=== PATIENT | male | born 1965 | race African-American/Black ===

== ENCOUNTER 2017-01-05 23:29 | Emergency (ER) | payer SELFPAY ==
[~2017-01-05] VITALS: Ht 175.3 cm; Wt 74.8 kg
[2017-01-06] MEDS ORDERED: NKM (00:03)
--- NOTE | 2017-01-06 01:21 | Emergency Room Report ---
History of Present Illness General Chief Complaint: Lower Extremity Injury Source: Patient Present Illness HPI 51-year-old male history of psych, left knee surgery 9 months ago, presenting with left knee pain. Patient poor historian, stating that he has had left knee pain, fell and landed on a, has a brace on, unable to give timeframe. Denies head trauma or LOC. Also states that he has suicidal ideation, has not had plan, we'll not provide history as to if patient should be on any medications for depression, unknown inpatient psych admission Allergies: Coded Allergies: PENICILLINS (Verified Allergy, Unknown, 01/06/17) Patient History Past Medical History: see triage record Past Surgical History: none Pertinent Family History: none Reviewed Nursing Documentation: PMH: Agreed, PSxH: Agreed Nursing Documentation-PMH Past Medical History: No Stated History Review of Systems All Other Systems: negative except mentioned in HPI Physical Exam Vital Signs Date Time Temp Pulse Resp B/P (MAP) Pulse Ox O2 Delivery O2 Flow Rate FiO2 01/05/17 23:58 98.2 104 16 102/57 95 Room Air Sp02 EP Interpretation: reviewed, normal General Appearance: GCS 15, non-toxic, other - Middle aged male, appears disheveled, not in acute distress Head: normocephalic, atraumatic Eyes: bilateral eye normal inspection, bilateral eye PERRL, bilateral eye EOMI ENT: normal ENT inspection, normal pharynx, normal voice, moist mucus membranes Neck: normal inspection, full range of motion, supple Respiratory: normal inspection, lungs clear, normal breath sounds, no respiratory distress, no retraction, no wheezing, speaking full sentences, chest symmetrical Cardiovascular #1: normal inspection, regular rate, rhythm, no edema, normal capillary refill Cardiovascular #2: 2+ radial (R), 2+ radial (L) Gastrointestinal: normal inspection, non tender, soft, non-distended, no guarding Genitourinary: no CVA tenderness Musculoskeletal: non-tender, other - Left knee tender to palpation, no obvious effusion, no warmth no erythema, limited range of motion secondary to pain Neurologic: normal inspection, alert, oriented x3, responsive, motor strength/ tone normal, sensory intact, normal gait, speech normal Psychiatric: memory normal, other - +SI Skin: normal inspection, normal color, no rash, warm/dry, well hydrated, normal turgor Medical Decision Making Diagnostic Impression: Primary Impression: Chronic pain of left knee Additional Impression: Alcohol intoxication ER Course 51-year-old male with psych history, left knee pain and SI DDX: Left knee pain likely chronic in nature, will rule out acute fracture Psych: Depression with active suicidal ideation no plan Plan: Obtain labs, tox, left knee x-ray, psych ER course: Patient has been sleeping comfortably, NAD X-ray knee - no acute pathology alcohol >200, fluids given pending psych eval Signed out patient to Dr. Julien 51-year-old male psych history, left knee surgery 9 months ago Complaining of left knee pain, suicidal ideation -Left knee x-ray nothing acute -Alcohol over 200, pending sobriety -SI, pending psych eval Please note that this Emergency Department Report was dictated using [employer] trim[employer] technology software, occasionally this can lead to erroneous entry secondary to interpretation by the dictation equipment. Laboratory Tests Test 01/06/17 01:15 White Blood Count 4.9 K/UL (4.8-10.8) Red Blood Count 4.46 M/UL (4.70-6.10) L Hemoglobin 11.7 G/DL (14.2-18.0) L Hematocrit 36.2 % (42.0-52.0) L Mean Corpuscular Volume 81 FL (80-99) Mean Corpuscular Hemoglobin 26.3 PG (27.0-31.0) L Mean Corpuscular Hemoglobin Concent 32.4 G/DL (32.0-36.0) Red Cell Distribution Width 17.5 % (11.6-14.8) H Platelet Count 223 K/UL (150-450) Mean Platelet Volume 7.2 FL (6.5-10.1) Neutrophils (%) (Auto) % (45.0-75.0) Lymphocytes (%) (Auto) % (20.0-45.0) Monocytes (%) (Auto) % (1.0-10.0) Eosinophils (%) (Auto) % (0.0-3.0) Basophils (%) (Auto) % (0.0-2.0) Sodium Level 141 mEQ/L (135-145) Potassium Level 4.2 mEQ/L (3.4-4.9) Chloride Level 102 mEQ/L (98-107) Carbon Dioxide Level 24 mEQ/L (20-30) Anion Gap 15 (5-15) Blood Urea Nitrogen 8 mg/dL (7-23) Creatinine 1.0 mg/dL (0.7-1.2) Estimate Glomerular Filtration Rate > 60 mL/min (>60) Glucose Level 106 mg/dL (74-106) Calcium Level 9.2 mg/dL (8.6-10.2) Total Bilirubin 0.7 mg/dL (0.0-1.2) Aspartate Amino Transferase (AST) 134 U/L (5-40) H Alanine Aminotransferase (ALT) 45 U/L (3-41) H Alkaline Phosphatase 122 U/L (40-129) Total Protein 7.9 g/dL (6.6-8.7) Albumin 4.1 g/dL (3.5-5.2) Globulin 3.8 g/dL Albumin/Globulin Ratio 1.0 (1.0-2.7) Salicylates Level < 1 mg/dL (10-30) L Acetaminophen Level < 10 ug/mL (10-30) L Serum Alcohol 295 mg/dL EKG Diagnostic Results Rate: normal Rhythm: NSR ST Segments: no acute changes ASA given to the pt in ED: No Other X-Ray Diagnostic Results Other X-Ray Diagnostic Results : X-Ray ordered: L knee # of Views/Limited Vs Complete: 3 View Indication: Pain EP Interpretation: Yes Interpretation: other - +refugio notes, mild effusion, no acute abnormalities Impression: Other - no acute fx, mild effusion Electronically Signed by: Electronically signed by Venu Dao MD Last Vital Signs Date Time Temp Pulse Resp B/P (MAP) Pulse Ox O2 Delivery O2 Flow Rate FiO2 01/05/17 23:58 98.2 104 16 102/57 95 Room Air Referrals: NOT CHOSEN RASHID/,REFERRING (PCP) Venu Dao M.D. Jan 06, 2017 01:21
[2017-01-06 01:36] LABS: MEAN CORPUSCULAR HEMOGLOBIN 26.3 PG (27.0-31.0); MEAN CORPUSCULAR HGB CONC 32.4 G/DL (32.0-36.0); MEAN CORPUSCULAR VOLUME 81 FL (80-99); MEAN PLATELET VOLUME 7.2 FL (6.5-10.1); PLATELET COUNT 223 K/UL (150-450); RED BLOOD COUNT 4.46 M/UL (4.70-6.10); RED CELL DISTRIBUTION WIDTH 17.5 % (11.6-14.8); WHITE BLOOD COUNT 4.9 K/UL (4.8-10.8)
[2017-01-06 01:50] LABS: ACETAMINOPHEN < 10 ug/mL (10-30); ALANINE AMINOTRANSFERASE 45 U/L (3-41); ALCOHOL 295 mg/dL; ANION GAP 15 (5-15); ASPARTATE AMINO TRANSFERASE 134 U/L (5-40); CALCIUM 9.2 mg/dL (8.6-10.2); CARBON DIOXIDE 24 mEQ/L (20-30); CHLORIDE 102 mEQ/L (98-107); GLOMERULAR FILTRATION RATE > 60 mL/min (>60); HEMOLYSIS 6; POTASSIUM 4.2 mEQ/L (3.4-4.9); SODIUM 141 mEQ/L (135-145); TOTAL PROTEIN 7.9 g/dL (6.6-8.7)
[2017-01-06 02:21] VITALS: BP 117/74
[2017-01-06 04:26] VITALS: BP 109/67
[2017-01-06 06:16] VITALS: BP 126/80
[2017-01-06 07:50] VITALS: BP 142/78
--- NOTE | 2017-01-06 12:49 | Cardiology Report ---
APPROVED REPORT EKG Measurement Heart [id number] Normal sinus rhythm Minimal voltage criteria for LVH, may be normal variant Borderline ECG
[2017-01-06 13:05] VITALS: BP 149/83
--- NOTE | 2017-01-06 15:03 | Diagnostic Imaging Report ---
Indication: PAIN Technique: 4 views of the left knee Comparison: None Findings:Surgical hardware is seen reducing old healed lateral proximal tibial fracture. No acute fractures. There is evidence of prior screw removals. Screw holes are also seen in the distal femur. Impression:Postsurgical and posttraumatic changes, as described. No acute bony trauma This agrees with the preliminary interpretation provided by the emergency room physician
[2017-01-06 16:35] VITALS: BP 159/94
--- NOTE | 2017-01-06 17:37 | Consultation ---
History of Present Illness General Chief Complaint: Lower Extremity Injury Present Illness HPI the pt with hx of MDD and knee surgery 8 months ago. the pt fell and was bib friend for knee pain. the pt stated that he is depressed as his dog was taken away from. the pt stated that he has been going to court to take his service dog back. the pt stated that he is being by a psychiatrist and a therapist at [facility]. the pt stated that he has thought of "" but no plan or intention to end his life. the pt was asking for pain medication. the pt denies hx of drug use/alcohol. He has 3 children, he is divorce and is friend with his ex. the pt sleep and appetite adequate. the pt served for ten years. the pt is not endorsing manic/psychotic sxs. the pt has hx of ptsd and is on meds. he has meds and is in therapy. he was reluctant to go to psych. He stated that he was not intoxicated, he two beers and that's not the reason he fell. Allergies: Coded Allergies: PENICILLINS (Verified Allergy, Unknown, 01/06/17) Medication History Scheduled No Known Medications* (NKM - No Known Medications*), 0 ., (Reported) Patient History History Provided By: Patient, Medical Record, PMD Healthcare decision maker Resuscitation status Advanced Directive on File Past Medical/Surgical History Past Medical/Surgical History: (1) Chronic pain of left knee Review of Systems Psychiatric: Reports: prior hx, anxiety, depressed feelings, emotional problems Physical Exam General Appearance: no apparent distress, alert, thin Neurologic: alert, oriented x 3, responsive, normal mood/affect Last 24 Hour Vital Signs Date Time Temp Pulse Resp B/P (MAP) Pulse Ox O2 Delivery O2 Flow Rate FiO2 01/06/17 13:05 98.4 85 16 149/83 92 Room Air 01/06/17 07:50 98.4 80 18 142/78 92 Room Air 01/06/17 06:16 85 16 126/80 94 Room Air 01/06/17 04:26 71 16 109/67 96 Room Air 01/06/17 02:21 97.6 93 14 117/74 94 Room Air 01/05/17 23:58 98.2 104 16 102/57 95 Room Air Laboratory Tests Test 01/06/17 01:15 9/21/17 08:20 White Blood Count 4.9 K/UL (4.8-10.8) Red Blood Count 4.46 M/UL (4.70-6.10) L Hemoglobin 11.7 G/DL (14.2-18.0) L Hematocrit 36.2 % (42.0-52.0) L Mean Corpuscular Volume 81 FL (80-99) Mean Corpuscular Hemoglobin 26.3 PG (27.0-31.0) L Mean Corpuscular Hemoglobin Concent 32.4 G/DL (32.0-36.0) Red Cell Distribution Width 17.5 % (11.6-14.8) H Platelet Count 223 K/UL (150-450) Mean Platelet Volume 7.2 FL (6.5-10.1) Neutrophils (%) (Auto) % (45.0-75.0) Lymphocytes (%) (Auto) % (20.0-45.0) Monocytes (%) (Auto) % (1.0-10.0) Eosinophils (%) (Auto) % (0.0-3.0) Basophils (%) (Auto) % (0.0-2.0) Sodium Level 141 mEQ/L (135-145) Potassium Level 4.2 mEQ/L (3.4-4.9) Chloride Level 102 mEQ/L (98-107) Carbon Dioxide Level 24 mEQ/L (20-30) Anion Gap 15 (5-15) Blood Urea Nitrogen 8 mg/dL (7-23) Creatinine 1.0 mg/dL (0.7-1.2) Estimat Glomerular Filtration Rate > 60 mL/min (>60) Glucose Level 106 mg/dL (74-106) Calcium Level 9.2 mg/dL (8.6-10.2) Total Bilirubin 0.7 mg/dL (0.0-1.2) Aspartate Amino Transf (AST/SGOT) 134 U/L (5-40) H Alanine Aminotransferase (ALT/SGPT) 45 U/L (3-41) H Alkaline Phosphatase 122 U/L (40-129) Total Protein 7.9 g/dL (6.6-8.7) Albumin 4.1 g/dL (3.5-5.2) Globulin 3.8 g/dL Albumin/Globulin Ratio 1.0 (1.0-2.7) Salicylates Level < 1 mg/dL (10-30) L Acetaminophen Level < 10 ug/mL (10-30) L Serum Alcohol 295 mg/dL Urine Opiates Screen Negative (NEGATIVE) Urine Barbiturates Screen Negative (NEGATIVE) Phencyclidine (PCP) Screen Negative (NEGATIVE) Urine Amphetamines Screen Negative (NEGATIVE) Urine Benzodiazepines Screen Negative (NEGATIVE) Urine Cocaine Screen Negative (NEGATIVE) Urine Marijuana (THC) Screen Negative (NEGATIVE) Height (Feet): 5 Height (Inches): 9.00 Weight (Pounds): 165 Assessment/Plan Status: stable Assessment/Plan ptsd, Mdd -the pt will the psychiatrist tomorrow he has an appointment -no additional meds -the pt is not at imminent dts/dto -the pt will be dc as he is not hold-able Abi Basilio M.D. Jan 06, 2017 17:37
== END 2017-01-06 16:40 | disposition home or self-care (01) ==
LOC: EMR 23:59
DX: G89.29 Other chronic pain (principal); M25.562 Pain in left knee; F10.129 Alcohol abuse with intoxication, unspecified; Z88.0 Allergy status to penicillin; R45.851 Suicidal ideations
CPT/HCPCS: 36415; 73564; 80053; 80300; 85025; 93005; 96360; 96361; 99284; G0480; 80329